=== PATIENT | female | born 1945 | race Caucasian/White ===

== ENCOUNTER → 2016-11-24 | Outpatient (CLI) | payer MEDICARE, BC ==
--- NOTE | 2016-11-24 14:48 | WWHP ---
[facility] - HISTORY AND PHYSICAL DATE OF SERVICE: 11/24/2016 CHIEF COMPLAINT: The patient is here for her routine gynecologic exam and mammogram. HPI: This is a 70-year-old, G1, P1 with an LMP of 2001. The patient had a negative Pap smear on 10/23/2015. She is without gynecologic complaints and denies any postmenopausal bleeding. PAST MEDICAL HISTORY: Chronic hypertension. MEDICATIONS: 1. Potassium 30 mEq daily. 2. Atenolol with chlorthalidone 100/25 mg 1 daily. 3. Xanax 0.25 mg p.r.n. 4. Naproxen 250 mg b.i.d. 5. Vitamin D3 four thousand units daily. 6. Calcium 1200 mg daily. 7. Fish oil supplement daily. 8. Turmeric 500 mg daily. 9. Z BEC 1 daily. ALLERGIES: SULFA and PENICILLIN and she is uncertain of the reactions that she had with these. PAST SURGICAL HISTORY: Colonoscopy 2013 and this was her third one. She has had multiple breast biopsies which were benign. Cholecystectomy in the past and left knee replacement surgery in the past. Also salivary gland was removed which was benign. PAST OB HISTORY: One vaginal delivery. 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 SOCIAL HISTORY: She denies tobacco and drug use and has 1 to 2 alcoholic drinks per week. She is . She does have a partner that she has been with since about 2009 and does not live with him. She is infrequently sexually active. 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 FAMILY HISTORY: Mother had ovarian cancer. Grandfather had prostate cancer. Grandparents had heart disease. REVIEW OF SYSTEMS: Weight has been stable. She denies respiratory, cardiac or GI problems. She denies maltreatment or falling. : She has occasional slight urinary leakage with coughing. PHYSICAL EXAM: Blood pressure 118/88, height 5 feet 3-1/2 inches, weight 215 pounds. Temperature 97.9, pulse 67. This is a well-developed, heavyset white female, who is alert and oriented x3, in no acute distress. HEENT is within normal limits. NECK: Supple without mass or thyromegaly. CHEST AND LUNGS: Clear to auscultation. HEART: Regular rate and rhythm. Breasts are without mass or discharge. Axillary exam is negative for adenopathy. Back negative for CVA tenderness. ABDOMEN: Soft, nontender, without palpable masses. PELVIC EXAM: external genitalia reveals mild atrophy without lesions. Cervix and vagina reveal mild atrophy without lesions. There is no evidence of prolapse with Valsalva. There is no significant cystocele and no urinary leakage was demonstrated. There is a small amount of urethral mobility with Valsalva. The uterus is mid position, nongravid size and nontender. There are no palpable adnexal masses or tenderness. Rectovaginal exam is negative for mass or tenderness and is negative for occult blood. EXTREMITIES: Nontender. IMPRESSION: 1. A 70-year-old menopausal female with normal gynecologic exam. 2. Family history of ovarian cancer in her mother. PLAN: 1. Pap smear was deferred since she had a normal one on 10/23/2015. 2. Self breast examination was discussed. 3. Mammogram will be done today. 4. Bone density screening will be done today. 5. She does get flu shots in the fall and will be getting this soon. 6. I have offered a pelvic ultrasound because of her family history of ovarian cancer. She is declining this year. She states she had 1 done last year and will probably want to do this again next year. 7. She will return in 1 year. MMODL / IJN: [id number] /
--- NOTE | 2016-11-25 11:05 | MM ---
Reason for exam: screening (asymptomatic). History: Patient is postmenopausal. Benign excisional biopsy of the left breast, 1968. Benign excisional biopsy of the right breast, 1968. Physical Findings: A clinical breast exam by your physician is recommended on an annual basis and results should be correlated with mammographic findings. MG 3D Screening Mammo W/Cad Bilateral CC and MLO view(s) were taken. There are scattered fibroglandular densities. Stable benign calcifications. Stable nodularity in the left breast No significant changes when compared with prior studies. ASSESSMENT: Benign, BI-RAD 2 RECOMMENDATION: Routine screening mammogram of both breasts in 1 year.
== END | disposition home or self-care (01) ==
LOC: WWCWWP 13:07
PROVIDERS: ATTEND Obstetrics & Gynecology
DX: Z12.31 Encounter for screening mammogram for malignant neoplasm of breast (principal)
CPT/HCPCS: 77063; G0202

== ENCOUNTER → 2016-12-14 | Outpatient (CLI) | payer MEDICARE, BC ==
--- NOTE | 2016-12-14 16:22 | BD ---
EXAMINATION TYPE: MG DEXA axial skeleton. DATE OF EXAM: 12/14/2016 COMPARISON: NONE CLINICAL HISTORY: 71-year-old female postmenopausal without HRT Height: 63 IN Weight: 213 LBS FRAX RISK QUESTIONS: Alcohol (3 or more units per day): NO Family History (Parent hip fracture): NO Glucocorticoids (More than 3mos): NO (Ex: prednisone, prednisolone, methylprednisolone, dexamethasone, and hydrocortisone). History of Fracture in Adulthood: NO Secondary Osteoporosis: 1. Type 1 Diabetes: NO 2. Hyperthyroidism: NO 3. Menopause before 45: NO 4. Malnutrition: NO 5. Chronic liver disease: NO Rheumatoid Arthritis: NO Current Tobacco Use: NO RISK FACTORS HISTORY OF: History of Wrist Fracture: YES RT When: BEFORE AGE 11 Active: YES Postmenopausal woman: AGE 51 MEDICATIONS: Additional Medications: CALCIUM 600 UNITS, VIT D 4000 UNITS,POTASSIUM, ATENOLOL, NAPROXEN , EXAM MEASUREMENTS: Bone mineral densitometry was performed using the Fundera System. Bone mineral density as measured about the Lumbar spine is: ----- L1-L4(G/cm2): 1.097 T Score Values are as follows: ----- L2: -1.2 ----- L3: -0.9 ----- L4: 0.2 ----- L1-L4: -0.7 Bone mineral density has: NO CHANGE 0.0% since study of: 04/05/2012 Bone mineral density about the R hip (g/cm2): 0.836 Bone mineral density about the L hip (g/cm2): 0.818 T Score values are as follows: -----R Neck: -1.5 -----L Neck: -1.6 -----R Total: -0.9 -----L Total: -0.3 Bone mineral density has: Decreased -4.0% since study of: 04/05/2012 IMPRESSION: Osteopenia (T Score between -2.5 and -1 as noted by T score values in the lumbar spine and both hips) . There is slightly increased risk of fracture and the patient may be considered for treatment. Re-Scre en 2-5 years. NOTE: T-SCORE=SD OF THE YOUNG ADULT MEAN.
== END | disposition home or self-care (01) ==
LOC: RADBDWWP 14:02
PROVIDERS: ATTEND Obstetrics & Gynecology
DX: M85.89 Other specified disorders of bone density and structure, multiple sites (principal); Z78.0 Asymptomatic menopausal state
CPT/HCPCS: 77080

== ENCOUNTER → 2018-01-25 | Outpatient (CLI) | payer MEDICARE, BC ==
[2018-01-25 14:53] LABS: Blood Urea Nitrogen 18 mg/dL (7-17)
--- NOTE | 2018-01-25 16:13 | CT ---
EXAMINATION TYPE: CT chest w con DATE OF EXAM: 01/25/2018 COMPARISON: None HISTORY: Abnormal outside MRI Automated exposure control for dose reduction was used. CONTRAST: 100 ml Iso 300. Contrast-enhanced CT of the chest was performed from the lung apices through the mid poles of the kidneys. Lung and mediastinal window settings are submitted. FINDINGS: LUNGS: The lungs are grossly clear, there is no concerning parenchymal mass or nodule identified. T here is no pleural effusion or pneumothorax seen. The tracheobronchial tree is patent. MEDIASTINUM: There are no greater than 1 cm hilar or mediastinal lymph nodes. No pericardial effusi on is seen. Thoracic aorta is of normal caliber. The heart is not enlarged. UPPER ABDOMEN: Small hiatal hernia. Multiple hepatic cysts noted the largest of which is identified w ithin the medial segment left hepatic lobe and measures 8 cm. An additional cyst is noted within the lateral segment left hepatic lobe adjacent to the diaphragm measuring 3.6 cm. OTHER: No additional significant abnormality is seen. IMPRESSION: 1. No abnormality of the chest. 2. Simple hepatic cysts noted.
== END | disposition home or self-care (01) ==
LOC: RADCTMAIN 14:13
PROVIDERS: ATTEND Family Medicine
DX: K76.89 Other specified diseases of liver (principal); E78.2 Mixed hyperlipidemia; E55.9 Vitamin D deficiency, unspecified; F41.9 Anxiety disorder, unspecified
CPT/HCPCS: 82565; 84520; 71260; 36415; Q9967

== ENCOUNTER → 2018-01-27 | Outpatient (CLI) | payer MEDICARE, BC ==
--- NOTE | 2018-01-27 14:12 | US ---
EXAMINATION TYPE: US pelvic complete DATE OF EXAM: 01/27/2018 COMPARISON: US 12/29/2010 CLINICAL HISTORY: Z80.41 Family History Ovarian CA. No problems. TECHNIQUE: . Transabdominal sonographic images of the pelvis were acquired. Date of LMP: Around 20 years ago EXAM MEASUREMENTS: Uterus: 5.7 x 2.1 x 3.0 cm Endometrial Stripe: 0.3 cm Right Ovary: 2.2 x 1.0 x 1.4 cm Left Ovary: 1.5 x 1.0 x 1.6 cm 1. Uterus: Anteverted wnl 2. Endometrium: wnl 3. Right Ovary: wnl 4. Left Ovary: wnl 5. Bilateral Adnexa: wnl 6. Posterior cul-de-sac: wnl IMPRESSION: No suspicious ovarian or adnexal masses identified.
--- NOTE | 2018-02-01 17:18 | P.PN ---
Progress Note - Text Progress Note Date: 02/01/18 OUTPATIENT FOLLOW-UP NOTE TEST(S)/RESULTS: pelvic ultrasound done on 01/27/2018 was normal. There were no suspicious ovarian or adnexal masses identified. METHOD OF NOTIFICATION: a message with this normal result was left on the patient's voicemail. PATIENT COMMENTS: DIAGNOSIS: normal pelvic ultrasound done for family history of ovarian cancer. DISCUSSION: PLAN: she is to return in one year for her annual well woman exam.
== END | disposition home or self-care (01) ==
LOC: RADUSWWP 10:04
PROVIDERS: ATTEND Obstetrics & Gynecology
DX: Z12.73 Encounter for screening for malignant neoplasm of ovary (principal); Z80.41 Family history of malignant neoplasm of ovary
CPT/HCPCS: 76856

== ENCOUNTER → 2018-03-21 | Outpatient (CLI) | payer MEDICARE, BC ==
[2018-03-21 13:10] LABS: HCT 42.9 % (34.0-46.0); HGB 14.5 gm/dL (11.4-16.0); MCH 29.9 pg (25.0-35.0); MCHC 33.8 g/dL (31.0-37.0); MCV 88.3 fL (80.0-100.0); Mean Platelet Volume 6.9; Platelet Count 229 k/uL (150-450); RBC 4.86 m/uL (3.80-5.40); WBC 6.7 k/uL (3.8-10.6)
[2018-03-21 13:20] LABS: Partial Thromboplastin Time 25.9 sec (22.0-30.0); Prothrombin Time 10.3 sec (9.0-12.0)
[2018-03-21 13:21] LABS: Appearance,Urine Clear (Clear); Bilirubin,Urine Negative (Negative); Blood,Urine Negative (Negative); Color,Urine Yellow; Glucose,Urine (UA) Negative (Negative); Ketones,Urine Negative (Negative); Leukocyte Esterase,Urine Small (Negative); Nitrite,Urine Negative (Negative); Protein,Urine Negative (Negative); RBC,Urine <1 /hpf (0-5); Specific Gravity,Urine 1.005 (1.001-1.035); Urobilinogen,Urine <2.0 mg/dL (<2.0); WBC,Urine 1 /hpf (0-5)
[2018-03-21 13:25] LABS: ALT 21 U/L (9-52); AST 21 U/L (14-36); Alkaline Phosphatase 39 U/L (38-126); Anion Gap 5 mmol/L; Blood Urea Nitrogen 20 mg/dL (7-17); Calcium 9.9 mg/dL (8.4-10.2); Carbon Dioxide 32 mmol/L (22-30); Chloride 103 mmol/L (98-107); Glucose 89 mg/dL (74-99); Potassium 4.2 mmol/L (3.5-5.1); Sodium 140 mmol/L (137-145); Total Protein 6.6 g/dL (6.3-8.2)
== END | disposition home or self-care (01) ==
LOC: LABPAT 11:45
PROVIDERS: ATTEND Orthopaedic Surgery
DX: Z01.818 Encounter for other preprocedural examination (principal); Z01.812 Encounter for preprocedural laboratory examination
CPT/HCPCS: 80053; 81001; 85027; 85610; 85730; 87070; 93005

== ENCOUNTER 2018-04-11 05:51 | Inpatient (IN) | payer MEDICARE, BC ==
[~2018-04-11 05:51] MED LIST: ACETAMINOPHEN TAB 500 MG TAB PO ONE; HYDROmorphone 0.5 MG/0.5 ML SYRINGE IVP PRN; LIDOCAINE 1% 20 ML VIAL (10MG/ML) FOR IV START INTRADERMA PRN; ONDANSETRON 4 MG/2 ML VIAL IVP ONE; TRANEXAMIC ACID 1,000 MG in SODIUM CHLORIDE 0.9% 100 ML IVPB ONE; ceFAZolin IN SWFI 2 GM/20 ML SYRINGE IVP ONE
[2018-04-11] MEDS: LACTATED RINGERS 1,000 ML IV SCH ×3 (06:21→22:44)
[2018-04-11] MEDS ORDERED: MIDAZOLAM 2 MG/2 ML VIAL IVP ONE (06:51)
[2018-04-11] MEDS ORDERED: fentaNYL (PF) 50 MCG/ML 2 ML AMP IVP ONE (06:52)
[2018-04-11] MEDS ORDERED: TRANEXAMIC ACID 1,000 MG/10 ML VIAL ONE (07:37)
[2018-04-11] MEDS ORDERED: SODIUM CHLORIDE 0.9% 100 ML BAG ONE (07:37)
[2018-04-11] MEDS ORDERED: PROPOFOL 10 MG/ML 20 ML VIAL IV ONE (07:37)
[2018-04-11] MEDS ORDERED: GLYCOPYRROLATE 0.2 MG/ML 2 ML VIAL ONE (07:37)
[2018-04-11] MEDS ORDERED: NEOSTIGMINE 1 MG/ML 10 ML VIAL ONE (07:37)
[2018-04-11] MEDS ORDERED: MIDAZOLAM 2 MG/2 ML VIAL ONE (07:37)
[2018-04-11] MEDS ORDERED: ePHEDrine SULFATE/0.9% NACL/PF 50 MG/5 ML SYRINGE IV ONE (07:37)
[2018-04-11] MEDS ORDERED: ROCURONIUM BROMIDE 10 MG/ML 10 ML VIAL IV ONE (07:37)
[2018-04-11] MEDS ORDERED: LIDOCAINE 1% INJ 10MG/ML (20 ML MDV) ONE (07:37)
[2018-04-11] MEDS ORDERED: SUCCINYLCHOLINE CHLORIDE 100 MG/5 ML SYR IV ONE (07:37)
[2018-04-11] MEDS ORDERED: ROPIVACAINE 246.25 MG, EPINEPHrine 0.5 MG, KETOROLAC 30 MG, cloNIDine HCL/PF 80 MCG, WA... MISCELLANE ONE ×5 (07:42)
[2018-04-11] MEDS ORDERED: ceFAZolin 3,000 MG in SODIUM CHLORIDE 0.9% IRRIGATIO 3,000 ML IRRIGATION ONE (08:08)
[2018-04-11] MEDS ORDERED: ROPIVACAINE 1,100 MG, SODIUM CHLORIDE 0.9% 500 ML 330 ML MISCELLANE PRN ×2 (08:21)
--- NOTE | 2018-04-11 08:21 | P.ONQ ---
Anesthesiology Proc Note - PNB - Peripheral Nerve Block Performed Right Adductor Canal Infusion Time Out Performed: Yes Procedure Start Time: 06:50 Procedure Stop Time: 07:03 Indication: Requested by physician Specifically requested for management of pain by DrDu: Isaias Goodman Sedation Type: Sedate with meaningful contact maintained Preparation: Sterile Dressing Position: Supine Catheter: Indwelling Needle Types: Other (see comment) Needle Size: 100mm (4") (pujunk) Needle Gauge: 20 Technique: Ultrasound Injectate: 0.5% Ropivacaine (see comment for volume) (25 ml) Blood Aspirated: No Pain Paresthesia on Injection Noted: No Resistance on Injection: Normal Events: Uneventful and Well Tolerated
[2018-04-11] MEDS ORDERED: LACTATED RINGERS 1,000 ML IV ONE (08:30)
--- NOTE | 2018-04-11 09:55 | P.OP ---
Date of Procedure: 04/11/18 Procedure(s) Performed: right tka flower PREOPERATIVE DIAGNOSIS: Right knee severe osteoarthritis with genu varum POSTOPERATIVE DIAGNOSIS: Right knee severe osteoarthritis with genu varum; 2. Diminished bone quality/osteopenia/osteoporosis OPERATION: Right knee cemented total replacement arthroplasty (metal on poly ANESTHESIA: Spinal ESTIMATED BLOOD LOSS: 100 ml. CARTON LINER: Anahi Pacheco PA-C (assistance with: patient positioning, retraction, exposure, hemostasis, leg positioning, implantation, irrigation, closure, dressing) COMPLICATIONS: None apparent. COMPONENTS IMPLANTED: Persona system from [employer] with tibial stem extension INDICATIONS: Mrs. Jackson is a 72-year-old female with a history of knee osteoarthritis. The patient's right knee is end-stage, and conservative management has failed. The operation of knee replacement has been discussed at length in the office, as well as potential risks and complications. These are inclusive of, but not limited to: bleeding, infection, scarring, discomfort, blood vessel and nerve damage, need for further surgery, failure to relieve symptoms, persistence, recurrence, or worsening of problems, loosening, dislocation, wear, blood clot, pulmonary embolism, , gait dysfunction, stiffness, and other risks as discussed in the office. The patient elects to proceed and the consent form has been signed. PROCEDURE: The patient was taken to the operating room and positioned on the operating room table in the supine position. Anesthesia was initiated. Care was taken to make sure that all pressure points were adequately padded. The operative lower extremity was prepped and draped in the usual aseptic fashion using ChloraPrep. Ioban drape was used for the case and the patient received intravenous antibiotics within one hour of the incision. A pneumotourniquet and leg wolfe were used for the case. The limb was exsanguinated with an Esmarch bandage and the tourniquet was inflated to 350 mmHg. Time-out was called confirming the patient's identity, side, procedure and administration of antibiotics and tranexamic acid. The incision was then created midline directly over the knee, carried down through skin and into the subcutaneous tissues and down to fascia. Full thickness subcutaneous medial flap was developed. Medial parapatellar arthrotomy was performed and the interior of the knee was inspected. There was end-stage osteoarthritis of the knee with a mild to moderate genu varum type deformity. The fat pad was excised and proximal medial release on the tibia was completed using meticulous dissection and a curved osteotome. The anterior cruciate ligament was taken down. Note was made of significant attrition of the anterior and significant degenerative appearance of the posterior cruciate ligaments. The exposure was excellent. The knee was flexed 90 degrees and the patella was everted. A spot was chosen on the femur approximately 1 cm anterior to the posterior cruciate ligament insertion and an intramedullary hole was created within the femur. The intramedullary guide was then set to 5 degrees of valgus. The distal cutting block was attached and pinned into position. An appropriate amount of distal femoral resection was set. The oscillating saw was then used to make the distal femoral cut. This cut was confirmed to be flat with the flat end of an osteotome. The retractors were placed around the tibia and the tibial surface was addressed. The angle and depth of resection was adjusted using an extramedullary cutting guide. The guide had a built-in 3 degree posterior slope cut. Once the cutting guide was adjusted appropriately and in line with the axis of the tibia and confirmed to be in good position in relation to the second metatarsal and transmalleolar axis, the tibial cut was then created with protection of the posterior neurovascular structures and the collateral ligaments. Note was made of diminished bone quality and therefore a short tibial stem extension was planned. The tibial cut surface was removed and sized. Femoral sizing was then accomplished using anterior referencing. Care was taken to analyze the posterior condyles for signs of deficiency or severe wear, and adjustments to the guide were made, as appropriate. 3 degree external rotation pins were placed. The cutting jig for the femur was applied to these pins. The planned cuts were further analyzed prior to performing them with the oscillating saw. No femoral notching was produced. Bone fragments were removed and the cut surfaces were finished, as necessary, with a reciprocating saw. Spacer block technique was then used to confirm that the flexion and extension gaps were equal. Soft tissue releases and adjustment of the tibial and/or femoral cuts were made, as necessary, until the gaps were equal. This included release of the posterior cruciate ligament, which was tight in this patient and , if left unreleased, would have resulted in poor kinematics and possibly early loosening. The femur was then further finished for a posterior cruciate ligament substituting component. Patellar resurfacing was performed using a reamer. The size of the required patellar component was estimated and the patellar surface was then reamed down to a residual thickness which would recreate the [place] thickness with the component. The exact placement of the patellar component was adjusted for position based on preoperative x-rays and intraoperative findings. Prior to placing trial components, anesthetic solution consisting of ropivicaine with epinephrine, ketorolac, and clonidine was injected carefully and methodically in a grid pattern using aspiration technique into the soft tissue around the knee circumferentially, starting with the deeper tissues first and progressing to fascia, and then finally the skin/subcutaneous tissue. Particular care was taken when injecting the posterior capsule. The trial components were inserted. The tibial tray was allowed to self center and the patella was noted to track very well. The position of the tibial component was marked and the tibia was then finished for a stemmed tibial component. Cement was mixed on the back table and applied to the final components. Trial components were removed and the cut surfaces of the bone were pulse lavaged thoroughly and dried. Cement was then applied to the tibial surface and pressurized into the surface using finger pressurization technique. The tibial component with stem extension was then applied and excess cement was removed after it was impacted securely and noted to be flush with the cut surface. In similar fashion, the cement was applied to the cut femoral surface, pressurized in using finger pressurization and the component was impacted into place. Excess cement was removed. The polyethylene spacer was then implanted and locked into position. The patellar component was then applied in similar technique and a patellar clamp was used to hold the patella in place as the cement hardened. Once the cement had fully hardened, the knee was reinspected. Any other cement extrusion was removed and final kinematic testing showed range of motion from 0 to 130 degrees with excellent stability, both medially and laterally and appropriate alignment of the leg. Patellar tracking was excellent. The knee was then rinsed and wound soaked with dilute chlorhexidine solution, then thoroughly pulse lavaged with normal saline. The tourniquet was deflated and hemostasis was obtained with electrocautery and IV tranexamic acid, 1 g given at the start of the operation and 1 g at the start of closure. Closure was with #2 Ethibond in the fascia/capsule and supplemented with #2 Quill, 2-0 Vicryl suture was used for the subcutaneous tissues and 3-0 Quill for the skin. Dermabond/Steri-Strips were then applied. A lightly compressive dressing was applied using Webril and an Michael wrap. The patient was then transferred to [facility] and taken to the recovery room in stable condition. Sponge and needle counts were correct.
[2018-04-11] MEDS ORDERED: BISACODYL 10 MG SUPP RECTAL PRN (10:03)
[2018-04-11] MEDS ORDERED: NA PHOS,M-B/NA PHOS,DI-BA 133 ML ENEMA RECTAL PRN (10:03)
[2018-04-11] MEDS ORDERED: ONDANSETRON 4 MG/2 ML VIAL IVP PRN (10:03)
[2018-04-11] MEDS ORDERED: NALOXONE 0.4 MG/ML 1 ML VIAL IV PRN (10:03)
[2018-04-11] MEDS ORDERED: MAGNESIUM HYDROXIDE 2,400 MG/10 ML CUP PO PRN (10:03)
[2018-04-11] MEDS ORDERED: HYDROmorphone 0.5 MG/0.5 ML SYRINGE IVP PRN ×3 (10:03)
[2018-04-11] MEDS ORDERED: ONDANSETRON 4 MG/2 ML VIAL IVP ONE (10:45)
--- NOTE | 2018-04-11 11:17 | XR ---
EXAMINATION TYPE: XR knee limited RT DATE OF EXAM: 04/11/2018 CLINICAL HISTORY: Postoperative evaluation Two views of the right knee are submitted. Identified are changes of total knee arthroplasty with femoral and tibial components appearing well seated. Postsurgical soft tissue changes are noted. Alignment is anatomic.
[2018-04-11 12:10] VITALS: BMI 35.0
--- NOTE | 2018-04-11 15:22 | P.CONS ---
History of Present Illness - Reason for Consult Recommendations regarding anti-hypertensive medications - History of Present Illness 71-year-old pleasant female admitted for right anaplastic sepsis and underwent surgery patient doesn't have any drainage placed patient denied any significant pain did not move her bowel pattern did not pass gas yet. Patient does have history of hypertension patient blood pressures is low normal at this time hold off on diuretic therapy patient is also on beta warner but he'll her heart rate is on the lower side because of which I'll continue to hold beta warner as well. Although beta blockers have shown to decrease perioperative acute coronary events but the patient is mild ascites sinus bradycardic because of which I believe this can be held at this time. Review of Systems REVIEW OF SYSTEMS: CONSTITUTIONAL: No fever, no malaise, no fatigue. HEENT: No recent visual problems or hearing problems. Denied any sore throat. CARDIOVASCULAR: No chest pain, orthopnea, PND, no palpitations, no syncope. PULMONARY: No shortness of breath, no cough, no hemoptysis. GASTROINTESTINAL: No diarrhea, no nausea, no vomiting, no abdominal pain. NEUROLOGICAL: No headaches, no weakness, no numbness. HEMATOLOGICAL: Denies any bleeding or petechiae. GENITOURINARY: Denies any burning micturition, frequency, or urgency. MUSCULOSKELETAL/RHEUMATOLOGICAL: Denies any joint pain, swelling, or any muscle pain. ENDOCRINE: Denies any polyuria or polydipsia. The rest of the 14-point review of systems is negative. 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 History of Any Multi-Drug Resistant Organisms: None Reported Past Surgical History: Breast Surgery, Cholecystectomy, Joint Replacement, Tonsillectomy Additional Past Surgical History / Comment(s): left knee replacement, breast biopsies- minesh lumpectomy, salivary gland removed Past Anesthesia/Blood Transfusion Reactions: Motion Sickness, Postoperative Nausea & Vomiting (PONV) Past Psychological History: Anxiety Smoking Status: Never smoker Past Alcohol Use History: Rare Past Drug Use History: None Reported - Past Family History Mother Family Medical History: Cancer Additional Family Medical History / Comment(s): ovarian Medications and Allergies Home Medications Medication Instructions Recorded Confirmed Type Atenolol/Chlorthalidone 1 each PO DAILY 01/31/14 04/11/18 History [Atenolol-Chlorthalidone 100-25] Potassium Chloride 30 meq PO DAILY 01/31/14 04/04/18 History ALPRAZolam [Xanax] 0.25 mg PO TID PRN 01/11/18 04/11/18 History Calcium Carbonate [Calcium] 1,200 mg PO DAILY 01/11/18 04/04/18 History Cholecalciferol (Vitamin D3) 4,000 unit PO DAILY 01/11/18 04/04/18 History [Vitamin D3] Naproxen 500 mg PO BID 01/11/18 04/04/18 History B Complex-Vit C-Vit E-Zinc [Z-Bec] 1 tab PO DAILY 04/04/18 04/04/18 History Fish Oil(Dose Unknown) 1 tab PO DAILY 04/04/18 04/04/18 History Aspirin [Adult Low Dose Aspirin EC] 81 mg PO DAILY #1 tablet. 04/11/18 Rx HYDROcodone/APAP 5-325MG [[place] 1 - 2 each PO Q4-6H PRN #50 tab 04/11/18 Rx 5-325] Rivaroxaban [Xarelto] 10 mg PO DAILY #5 tab 04/11/18 Rx Sennosides-Docusate Sodium 1 tab PO BID #60 tablet 04/11/18 Rx [Senokot-S] Allergies Allergy/AdvReac Type Severity Reaction Status Date / Time escitalopram oxalate Allergy Hallucinati Verified 04/11/18 11:31 [From Lexapro] ons Penicillins Allergy Rash/Hives Verified 04/11/18 11:31 Sulfa (Sulfonamide Allergy Unknown Verified 04/11/18 11:31 Antibiotics) Childhood Physical Exam Vitals: Vital Signs Temp Pulse Pulse Resp BP Pulse Ox 04/11/18 10:30 70 16 132/57 69 L 04/11/18 10:15 70 16 132/57 100 04/11/18 10:00 98.0 F 80 16 127/60 96 04/11/18 07:11 55 L 17 137/63 98 04/11/18 06:14 97 F L 69 17 155/69 96 Intake and Output 04/11/18 04/11/18 04/11/18 06:59 14:59 22:59 Intake Total 500 1201 Output Total 100 Balance 500 1101 Intake: IV 500 1201 Output: Estimated Blood Loss 100 PHYSICAL EXAMINATION: GENERAL: The patient is alert and oriented x3, not in any acute distress. Well developed, well nourished. HEENT: Pupils are round and equally reacting to light. EOMI. No scleral icterus. No conjunctival pallor. Normocephalic, atraumatic. No pharyngeal erythema. No thyromegaly. CARDIOVASCULAR: S1 and S2 present. No murmurs, rubs, or gallops. PULMONARY: Chest is clear to auscultation, no wheezing or crackles. ABDOMEN: Soft, nontender, nondistended, sluggish bowel sounds MUSCULOSKELETAL: Deferred to orthopedic surgery EXTREMITIES: No cyanosis, clubbing, or pedal edema. NEUROLOGICAL: Gross neurological examination did not reveal any focal deficits. SKIN: No rashes. Assessment and Plan Plan: Hypertension: Management as mentioned above hold off antihypertensive medication and monitor blood pressure restart depending on the blood pressures here -Right knee arthroplasty: Pain management and due to prophylaxis as per primary service -Gases visual reflux disease -Anxiety disorder
[2018-04-11] MEDS: ceFAZolin IN SWFI 2 GM/20 ML SYRINGE IVP SCH (17:25)
[2018-04-11] MEDS: HYDROcodone/APAP 5-325MG 1 EACH TAB PO PRN ×2 (17:27→22:34)
[2018-04-11] MEDS ORDERED: TEMAZEPAM 15 MG CAP PO PRN (22:00)
[2018-04-11] MEDS: SENNOSIDES-DOCUSATE SODIUM 1 EACH TAB PO SCH (22:36)
[2018-04-11] MEDS: ALPRAZolam 0.25 MG TAB PO PRN (22:37)
[2018-04-12] MEDS: ceFAZolin IN SWFI 2 GM/20 ML SYRINGE IVP SCH (00:11)
[2018-04-12] MEDS: LACTATED RINGERS 1,000 ML IV SCH ×2 (05:33)
[2018-04-12] MEDS: HYDROcodone/APAP 5-325MG 1 EACH TAB PO PRN ×2 (06:43→12:09)
[2018-04-12 08:11] LABS: Basophils % (A) 0 %; Eosinophils # (A) 0.1 k/uL (0-0.7); Eosinophils % (A) 1 %; HCT 34.8 % (34.0-46.0); HGB 11.8 gm/dL (11.4-16.0); Lymphocytes # (A) 1.1 k/uL (1.0-4.8); Lymphocytes % (A) 18 %; MCHC 33.7 g/dL (31.0-37.0); Mean Platelet Volume 6.8; Monocytes # (A) 0.3 k/uL (0-1.0); Monocytes % (A) 5 %; Neutrophils # (A) 4.4 k/uL (1.3-7.7); Neutrophils % (A) 73 %; Platelet Count 180 k/uL (150-450); RBC 3.91 m/uL (3.80-5.40); RDW 13.3 % (11.5-15.5)
[2018-04-12] MEDS: MELOXICAM 7.5 MG TAB PO SCH (09:17)
[2018-04-12] MEDS: RIVAROXABAN 10 MG TAB PO SCH (09:18)
--- NOTE | 2018-04-12 09:48 | P.PN ---
Progress Note - Text Progress Note Date: 04/12/18 72-year-old female status post a right total knee arthroplasty postop day #1 with a abductor canal catheter. Patient complaining of pain 5 out of 10 in severity. She has a history of low back pain with radicular pain in her right leg along the posterior aspect of her entire leg. That is currently the most intense pain at the moment. She was up ambulating early today to the bathroom with no difficulty with slight increase in pain in her knee. Overall doing well.
--- NOTE | 2018-04-12 11:00 | P.PN ---
Subjective Progress Note Date: 04/12/18 Principal diagnosis: Primary osteoarthritis right knee. Status post total right knee arthroplasty. This is a 72-year-old female who is status post total right knee arthroplasty. She is doing well from orthopedic standpoint. She does have increased pain this morning. She does not wish to be discharged today. She does not feel steady and is having issues with pain management. Objective - Vital Signs Vital signs: Vital Signs Temp 98.8 F 04/12/18 07:12 Pulse 80 04/12/18 07:12 Resp 16 04/12/18 07:12 BP 99/63 04/12/18 07:12 Pulse Ox 93 L 04/12/18 07:12 Intake & Output 04/11/18 04/12/18 04/12/18 18:59 06:59 18:59 Intake Total 1201 1730 296 Output Total 300 900 Balance 901 830 296 Intake: IV 1201 Intake, IV Titration 650 Amount Lactated Ringers 1,000 ml 650 @ 100 mls/hr IV .Q10H COURTNEY Rx#:[id number] Oral 1080 296 Output: Urine 200 900 Estimated Blood Loss 100 Other: Voiding Method Toilet # Voids 1 - Exam This is a pleasant 72-year-old female in no acute distress. She is alert and oriented 3. Exam of the right knee reveals mild ecchymosis. There is no erythema. There is no active drainage from the incision. She has full foot and ankle motion without difficulty or pain. Neurovascular status to the lower extremity is intact. - Labs CBC & Chem 7: 04/12/18 07:23 Assessment and Plan (1) Osteoarthritis of right knee Current Visit: Yes Status: Acute Code(s): M17.11 - UNILATERAL PRIMARY OSTEOARTHRITIS, RIGHT KNEE SNOMED Code(s): 396650872273903 (2) Status post total right knee replacement using cement Current Visit: Yes Status: Acute Code(s): Z96.651 - PRESENCE OF RIGHT ARTIFICIAL KNEE JOINT SNOMED Code(s): 0873170102348 Plan: The clinical findings are discussed the patient. I have written a prescription for a wheel kit for her walker to make it easier to ambulate. We will plan discharged to home tomorrow.
--- NOTE | 2018-04-12 13:56 | P.PN ---
Subjective patient is still complaining of pain in the surgical site area patient blood pressure remains on the low normal side because of which asked her to hold of her antidepressant medication until she is seen by the primary care doctor.patient did pass gas did not move her bowel yet. Constitutional: Denied any fatigue denied any fever. Cardio vascular: denied any chest pain, palpitations Gastrointestinal denied any nausea vomiting Pulmonary: Denied any shortness of breath cough Neurologic denied any new focal deficits All inpatient medications were reviewed and appropriate changes in these medications as dictated in the interval history and assessment and plan. Objective - Vital Signs Vital signs: Vital Signs Temp 98.8 F 04/12/18 07:12 Pulse 80 04/12/18 07:12 Resp 16 04/12/18 07:12 BP 99/63 04/12/18 07:12 Pulse Ox 93 L 04/12/18 07:12 Intake & Output 04/11/18 04/12/18 04/12/18 18:59 06:59 18:59 Intake Total 1201 1730 296 Output Total 300 900 Balance 901 830 296 Intake: IV 1201 Intake, IV Titration 650 Amount Lactated Ringers 1,000 ml 650 @ 100 mls/hr IV .Q10H COURTNEY Rx#:[id number] Oral 1080 296 Output: Urine 200 900 Estimated Blood Loss 100 Other: Voiding Method Toilet # Voids 1 - Exam PHYSICAL EXAMINATION: GENERAL: The patient is alert and oriented x3, not in any acute distress. Well developed, well nourished. HEENT: Pupils are round and equally reacting to light. EOMI. No scleral icterus. No conjunctival pallor. Normocephalic, atraumatic. No pharyngeal erythema. No thyromegaly. CARDIOVASCULAR: S1 and S2 present. No murmurs, rubs, or gallops. PULMONARY: Chest is clear to auscultation, no wheezing or crackles. ABDOMEN: Soft, nontender, nondistended, normoactive bowel sounds. No palpable organomegaly. MUSCULOSKELETAL: No joint swelling or deformity. EXTREMITIES: No cyanosis, clubbing, or pedal edema. NEUROLOGICAL: Gross neurological examination did not reveal any focal deficits. SKIN: No rashes. - Labs CBC & Chem 7: 04/12/18 07:23 Assessment and Plan Plan: Hypertension: Management as mentioned above hold off antihypertensive medication and monitor blood pressure restart depending on the blood pressures here -Right knee arthroplasty: Pain management and DVT prophylaxis as per primary service -gastroesophageall reflux disease -Anxiety disorder
[2018-04-12] MEDS ORDERED: traMADol 50 MG TAB PO PRN (18:32)
[2018-04-12] MEDS: SENNOSIDES-DOCUSATE SODIUM 1 EACH TAB PO SCH (20:32)
[2018-04-12] MEDS: ALPRAZolam 0.25 MG TAB PO PRN (22:42)
[2018-04-13] MEDS: HYDROcodone/APAP 5-325MG 1 EACH TAB PO PRN ×3 (00:09→12:02)
[2018-04-13 01:07] VITALS: RESP 16
[2018-04-13 09:38] VITALS: BP 125/74; PULSE 80; TEMP 98.9
[2018-04-13] MEDS: RIVAROXABAN 10 MG TAB PO SCH (09:42)
[2018-04-13] MEDS: MELOXICAM 7.5 MG TAB PO SCH (09:42)
--- NOTE | 2018-04-13 11:08 | P.DS ---
Providers Date of admission: 04/11/18 05:51 Expected date of discharge: 04/13/18 Attending physician: Isaias Goodman Consults: 04/11/18 10:03 Consult Physician Routine Consulting Provider: Kimberly Barr Consult Reason/Comments: medical management Do you want consulting provider notified?: Yes Primary care physician: Jose Luis Hdez - Discharge Diagnosis(es) (1) Osteoarthritis of right knee Current Visit: Yes Status: Acute (2) Status post total right knee replacement using cement Current Visit: Yes Status: Acute Hospital Course: This is a 72-year-old female who was last seen with complaint of continued right knee pain. The patient has a known history of degenerative arthritis of the right knee and presents to discuss surgical options. After discussion and consideration the patient elects to proceed with total right knee arthroplasty. The patient is seen preoperatively by Dr. Welsh and cleared for surgery. The patient is admitted to [facility] for total right knee arthroplasty. The procedures performed without complication or sequelae. Patient is doing well postoperatively. Vital signs are stable at discharge. Labs are stable at discharge. the patient is ambulating well with walker with minimal assistance. The patient is discharged to home on postop day #2 pending medical clearance. Please see orders and refer to the med rec for accurate list of medications. Plan - Discharge Summary Discharge Rx Participant: Yes New Discharge Prescriptions: New Aspirin [Adult Low Dose Aspirin EC] 81 mg PO DAILY #1 tablet. HYDROcodone/APAP 5-325MG [Bartlett 5-325] 1 - 2 each PO Q4-6H PRN #50 tab PRN Reason: Pain Rivaroxaban [Xarelto] 10 mg PO DAILY #5 tab Sennosides-Docusate Sodium [Senokot-S] 1 tab PO BID #60 tablet Discontinued Atenolol/Chlorthalidone [Atenolol-Chlorthalidone 100-25] 1 each PO DAILY No Action Potassium Chloride 30 meq PO DAILY Calcium Carbonate [Calcium] 1,200 mg PO DAILY ALPRAZolam [Xanax] 0.25 mg PO TID PRN PRN Reason: Anxiety Naproxen 500 mg PO BID Cholecalciferol (Vitamin D3) [Vitamin D3] 4,000 unit PO DAILY Fish Oil(Dose Unknown) 1 tab PO DAILY B Complex-Vit C-Vit E-Zinc [Z-Bec] 1 tab PO DAILY Discharge Medication List Potassium Chloride 30 meq PO DAILY 01/31/14 [History] ALPRAZolam [Xanax] 0.25 mg PO TID PRN 01/11/18 [History] Calcium Carbonate [Calcium] 1,200 mg PO DAILY 01/11/18 [History] Cholecalciferol (Vitamin D3) [Vitamin D3] 4,000 unit PO DAILY 01/11/18 [History] Naproxen 500 mg PO BID 01/11/18 [History] B Complex-Vit C-Vit E-Zinc [Z-Bec] 1 tab PO DAILY 04/04/18 [History] Fish Oil(Dose Unknown) 1 tab PO DAILY 04/04/18 [History] Aspirin [Adult Low Dose Aspirin EC] 81 mg PO DAILY #1 tablet. 04/11/18 [Rx] HYDROcodone/APAP 5-325MG [Bartlett 5-325] 1 - 2 each PO Q4-6H PRN #50 tab 04/11/18 [Rx] Rivaroxaban [Xarelto] 10 mg PO DAILY #5 tab 04/11/18 [Rx] Sennosides-Docusate Sodium [Senokot-S] 1 tab PO BID #60 tablet 04/11/18 [Rx] Follow up Appointment(s)/Referral(s): Anahi Pacheco PAC [PHYSICIAN COMPUTER OPERATIONS SUPERVISOR] - 04/21/18 2:00 pm [facility], [NON-STAFF] - 1 Week Jose Luis Hdez DO [Primary Care Provider] - 04/18/18 1:20 pm (With Anjali BUSH) Activity/Diet/Wound Care/Special Instructions: May shower if no drainage from incision. May bear wt as tolerated w walker. Discharge Disposition: HOME WITH HOME HEALTH SERVICES
--- NOTE | 2018-04-13 18:28 | PN ---
PROGRESS NOTE DATE OF SERVICE: 04/12/2018 This 72-year-old woman was admitted after right knee arthroplasty is improving significantly. No chest pain. No palpitations. No fever. The pain is improving at this time. EXAM: Alert and oriented x2. Pulse is 80. Blood pressure 124/74, respirations 16, temperature 98.9, pulse ox 94% on room air. HEENT: Conjunctivae normal. NECK: No jugular venous distention. Cardiovascular: S1, S2 muffled. Respirations: Breath sounds diminished in the bases. No rhonchi. No crackles. Abdomen is soft, nontender. Legs status post knee arthroplasty. Central nervous system: No focal deficits. LABS: CBC within normal limites. ASSESSMENT: 1. Status post right knee arthroplasty. 2. Hypertension. 3. Gastroesophageal reflux disease. 4. History of anxiety. 5. Continued pain, improved. RECOMMENDATIONS AND DISCUSSION: Recommend to continue current medications, management and symptomatic treatment. Recommend to continue with the primary physician. Repeat labs and continue with home medications. Further recommendations to follow. MMODL / IJN: [id number] /
== END 2018-04-13 15:49 | disposition home health service (06) | DRG 470 ==
LOC: 2ORMAIN 05:51 → 4SSUR 10:05
PROVIDERS: ADMIT Orthopaedic Surgery; ATTEND Orthopaedic Surgery
PROC: 0SRC0J9 Replacement of Right Knee Joint with Synthetic Substitute, Cemented, Open Approach (ICD-10-PCS; principal; 2018-04-11 07:30)
DX: M17.11 Unilateral primary osteoarthritis, right knee (principal); R18.8 Other ascites; R00.1 Bradycardia, unspecified; I10 Essential (primary) hypertension; K21.9 Gastro-esophageal reflux disease without esophagitis; M21.169 Varus deformity, not elsewhere classified, unspecified knee; M81.0 Age-related osteoporosis without current pathological fracture; F41.9 Anxiety disorder, unspecified; E78.2 Mixed hyperlipidemia; E78.00 Pure hypercholesterolemia, unspecified; E55.9 Vitamin D deficiency, unspecified; M47.9 Spondylosis, unspecified; N39.3 Stress incontinence (female) (male); G89.29 Other chronic pain; M51.16 Intervertebral disc disorders with radiculopathy, lumbar region; M51.17 Intervertebral disc disorders with radiculopathy, lumbosacral region; E66.9 Obesity, unspecified; Z68.34 Body mass index [BMI] 34.0-34.9, adult; Z79.01 Long term (current) use of anticoagulants; Z79.82 Long term (current) use of aspirin; Z79.899 Other long term (current) drug therapy; Z88.0 Allergy status to penicillin; Z88.2 Allergy status to sulfonamides; Z88.8 Allergy status to other drugs, medicaments and biological substances; Z96.652 Presence of left artificial knee joint; Z85.828 Personal history of other malignant neoplasm of skin
CPT/HCPCS: 85025; 88300

== ENCOUNTER → 2018-08-08 | Outpatient (CLI) | payer MEDICARE, BC ==
--- NOTE | 2018-08-08 08:01 | US ---
EXAMINATION TYPE: US abdomen limited DATE OF EXAM: 08/08/2018 COMPARISON: NONE CLINICAL HISTORY: R93.2 Abnormal finding on previous exam. Patient states having an MRI for her back at an outside facility that showed liver lesions. GB removed in x 20 years ago EXAM MEASUREMENTS: Liver Length: 13.3 cm CBD: 0.8 cm CHD: 0.8 cm Right Kidney: 10.3 x 5.3 x 4.5 cm Pancreas: wnl, main pancreatic duct = 1.2 mm Liver: Multiple cystic appearing lesions seen. Largest on left = 7.0 x 7.8 x 5.3 cm. Largest on ri ght = 3.2 x 2.8 x 3.0 cm Gallbladder: Surgically absent Evidence for sonographic Millan's sign: neg CBD: wnl CHD: wnl Right Kidney: wnl IMPRESSION: Multiple hepatic cysts, all appearing simple in nature, the largest located on the left m easuring up to 7.8 cm.
== END | disposition home or self-care (01) ==
LOC: RADUSWWP 06:51
PROVIDERS: ATTEND Family Medicine
DX: K76.89 Other specified diseases of liver (principal)
CPT/HCPCS: 76705

== ENCOUNTER → 2019-02-07 | Outpatient (CLI) | payer MEDICARE, BC ==
[2019-02-07 13:54] VITALS: BP 124/78; PULSE 67; RESP 18; TEMP 97.7
--- NOTE | 2019-02-07 14:47 | P.HPOB ---
History of Present Illness H&P Date: 02/07/19 Chief Complaint: The patient is here for her routine gynecologic exam and ma mmogram. This is a 73-year-old with an LMP of 2001. The patient is without gynecologic complaints and denies any postmenopausal bleeding. Review of Systems She is gained 13 pounds over the last year. She denies respiratory, cardiac and G.I. problems. She denies maltreatment or problems with falling. : She has been experiencing urinary leakage with coughing and sneezing. Past Medical History Past Medical History: GERD/Reflux, Hypertension Additional Past Medical History / Comment(s): hx.tubular adenoma. Osteopenia. 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 History of Any Multi-Drug Resistant Organisms: None Reported Past Surgical History: Breast Surgery, Cholecystectomy, Joint Replacement Additional Past Surgical History / Comment(s): BL knee replaced, breast biopsies, salivary gland removed. Colonoscopy 2013. Past Anesthesia/Blood Transfusion Reactions: Postoperative Nausea & Vomiting (PONV) Past Psychological History: No Psychological Hx Reported Smoking Status: Never smoker Past Alcohol Use History: Occasional (2 per month) Past Drug Use History: None Reported Additional History: She is and has been with her partner since 2009. She is not sexually active. 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 - Past Family History Mother Family Medical History: Cancer Additional Family Medical History / Comment(s): ovarian. Grandfather had prostate cancer. Medications and Allergies Home Medications Medication Instructions Recorded Confirmed Type Potassium Chloride 30 meq PO DAILY 01/31/14 02/07/19 History ALPRAZolam [Xanax] 0.25 mg PO TID PRN 01/11/18 02/07/19 History Calcium Carbonate [Calcium] 1,200 mg PO DAILY 01/11/18 02/07/19 History Cholecalciferol (Vitamin D3) 4,000 unit PO DAILY 01/11/18 02/07/19 History [Vitamin D3] Naproxen 500 mg PO BID 01/11/18 02/07/19 History B Complex-Vit C-Vit E-Zinc [Z-Bec] 1 tab PO DAILY 04/04/18 02/07/19 History Fish Oil(Dose Unknown) 1 tab PO DAILY 04/04/18 02/07/19 History Atenolol/Chlorthalidone 1 each PO DAILY 02/07/19 02/07/19 History [Atenolol-Chlorthalidone 100-25] Allergies Allergy/AdvReac Type Severity Reaction Status Date / Time escitalopram oxalate Allergy Hallucinati Verified 02/07/19 13:54 [From Lexapro] ons Penicillins Allergy Rash/Hives Verified 02/07/19 13:54 Sulfa (Sulfonamide Allergy Unknown Verified 02/07/19 13:54 Antibiotics) Childhood Exam Vital Signs Temp Pulse Resp BP Pulse Ox 02/07/19 13:45 97.7 F 67 18 124/78 99 Intake and Output 02/06/19 02/07/19 02/07/19 22:59 06:59 14:59 Other: Weight 94.347 kg Height 5 feet 3 inches, weight 208 pounds, BMI 36.8. This is a well-developed well-nourished white female who is alert and oriented times 3 in no acute distress. HEENT: Within normal limits. NECK: Supple without mass or thyromegaly. CHEST AND LUNGS: Clear to auscultation. HEART: Regular rate and rhythm. BREASTS: Are without mass or discharge. AXILLARY EXAM: Negative for adenopathy. BACK: Negative for CVA tenderness. ABDOMEN: Soft, nontender, without palpable masses. PELVIC EXAM: Normal external genitalia with mild atrophy. Cervix and vagina appear normal mild atrophy. There is no unusual discharge. There is no evidence of prolapse. The uterus is midposition, nongravid size and nontender. There are no palpable adnexal masses or tenderness. RECTAL EXAM: Of vaginal exam is negative for mass or tenderness and is negative for occult blood. EXTREMITIES: Nontender. IMPRESSION: 1. 73-year-old menopausal female with normal gynecologic exam. 2. History of osteopenia. 3. Family history of ovarian cancer in her mother. 4. Stress urinary incontinence. PLAN: 1. Pap smear was deferred since she had a normal one on 01/11/2018. We will repeat this in 2-3 years. If that one is negative, we will consider discontinuing Pap smears. 2. Self breast awareness was discussed with the patient. 3. Screening mammogram will be done today. 4. Osteoporosis prevention was discussed. I have stressed the importance of adequate calcium, vitamin D and regular exercise. Recommended amounts of calcium and vitamin D were also discussed. Bone density testing will be done today. 5. She did receive a flu shot this fall. 6. We have discussed the option of a referral for her stress urinary incontinence. She will consider this. If she desires a referral she will be referred to a gynecologic urologist. 7. Pelvic ultrasound will be done yearly because of her family history of ovarian cancer. The order slip was given to the patient for this. 8. The patient was advised to return in 1-2 years for her well woman examination.
--- NOTE | 2019-02-07 16:05 | BD ---
EXAMINATION TYPE: Axial Bone Density DATE OF EXAM: 02/07/2019 COMPARISON: 12/14/2016 CLINICAL HISTORY: Postmenopausal female Height: 63 IN Weight: 205 LBS RISK FACTORS HISTORY OF: History of Wrist Fracture: YES When: APPROX AGE 11 Active: YES Postmenopausal woman: AGE 53 MEDICATIONS: Additional Medications: VIT D, CALCIUM, ATENOLOL, POTASSIUM, EXAM MEASUREMENTS: Bone mineral densitometry was performed using the [employer]. Bone mineral density as measured about the Lumbar spine is: ----- L1-L4(G/cm2): 1.106 T Score Values are as follows: ----- L2: -0.9 ----- L3: -1.2 ----- L4: 0.3 ----- L1-L4: -0.6 Bone mineral density has: Increased 0.2% since study of: 12/14/2016 Bone mineral density about the R hip (g/cm2): 0.790 Bone mineral density about the L hip (g/cm2): 0.841 T Score values are as follows: -----R Neck: -1.8 -----L Neck: -1.4 -----R Total: -1.2 -----L Total: -0.6 Bone mineral density has: Decreased -3.4% since study of: 12/14/2016 IMPRESSION: Osteopenia (T Score between -2.5 and -1). There is slightly increased risk of fracture and the patient may be considered for treatment. Re-Screen 2-5 years. NOTE: T-SCORE=SD OF THE YOUNG ADULT MEAN.
--- NOTE | 2019-02-09 13:53 | MM ---
Reason for exam: screening (asymptomatic). Last mammogram was performed 1 year and 1 month ago. History: Patient is postmenopausal. Benign excisional biopsy of the left breast, 1968. Benign excisional biopsy of the right breast, 1968. Took hormonal contraceptives for 23 years. Physical Findings: A clinical breast exam by your physician is recommended on an annual basis and results should be correlated with mammographic findings. MG 3D Screening Mammo W/Cad Bilateral CC and MLO view(s) were taken. Prior study comparison: January 11, 2018, bilateral MG 3d screening mammo w/cad. November 24, 2016, bilateral MG 3d screening mammo w/cad. There are scattered fibroglandular densities. Stable benign calcifications. There is no discrete abnormality. No significant changes when compared with prior studies. ASSESSMENT: Benign, BI-RAD 2 RECOMMENDATION: Routine screening mammogram of both breasts in 1 year.
== END | disposition home or self-care (01) ==
LOC: WWCWWP 13:35
PROVIDERS: ATTEND Obstetrics & Gynecology
DX: Z12.31 Encounter for screening mammogram for malignant neoplasm of breast (principal); M85.80 Other specified disorders of bone density and structure, unspecified site; Z78.0 Asymptomatic menopausal state
CPT/HCPCS: 77063; 77067; 77080

== ENCOUNTER → 2019-03-15 | Outpatient (CLI) | payer MEDICARE, BC ==
--- NOTE | 2019-03-16 07:15 | US ---
EXAMINATION TYPE: US pelvic complete DATE OF EXAM: 03/15/2019 COMPARISON: Pelvic ultrasound dated 01/27/2018 CLINICAL HISTORY: [id number] FAMILY HX OF OVARIAN CA. LMP 20 years ago; TECHNIQUE: Transabdominal (TA). Transabdominal sonographic images of the pelvis were acquired. Date of LMP: 20 years ago EXAM MEASUREMENTS: Uterus: 6.0 x 3.2 x 1.8 cm Endometrial Stripe: 0.3 cm Right Ovary: 2.2 x 2.1 x 1.8 cm Left Ovary: 2.1 x 2.6 x 1.1 cm 1. Uterus: Anteverted 2. Endometrium: wnl post menopause 3. Right Ovary: wnl 4. Left Ovary: wnl 5. Bilateral Adnexa: wnl 6. Posterior cul-de-sac: wnl IMPRESSION: Endometrial thickness is within normal limits. Ovaries are symmetric and atrophic. No ova zhen masses seen on this examination.
--- NOTE | 2019-03-21 16:02 | P.PN ---
Progress Note - Text Progress Note Date: 03/21/19 OUTPATIENT FOLLOW-UP NOTE TEST(S)/RESULTS: Pelvic ultrasound done on 03/15/2019 was within normal limits. Ovaries were both within normal limits. METHOD OF NOTIFICATION: A message with these results was left on the patient's voicemail. PATIENT COMMENTS: DIAGNOSIS: Family history of ovarian cancer. Pelvic ultrasound was within normal limits. DISCUSSION: PLAN: She was advised to return in one year for her annual well woman exam. We will continue to do yearly pelvic ultrasounds.
== END | disposition home or self-care (01) ==
LOC: RADUSWWP 14:14
PROVIDERS: ATTEND Obstetrics & Gynecology
DX: N83.312 Acquired atrophy of left ovary (principal); N83.311 Acquired atrophy of right ovary; Z80.41 Family history of malignant neoplasm of ovary
CPT/HCPCS: 76856

== ENCOUNTER → 2020-06-26 | Outpatient (CLI) | payer MEDICARE, BC ==
[2020-06-26 11:48] VITALS: BP 138/82; PULSE 67; RESP 18; TEMP 98
--- NOTE | 2020-06-26 12:48 | P.HPOB ---
History of Present Illness H&P Date: 06/26/20 Chief Complaint: The patient is here for her routine gynecologic exam and ma mmogram. This is a 74-year-old with an LMP of 2001. The patient is without gynecologic complaints. The patient is concerned about ovarian cancer because her mother had ovarian cancer in her 70s. She wants to make sure that we continue to do yearly pelvic ultrasounds. Review of Systems She has gained about 8 pounds over the past year and a half. She denies respi ratory, cardiac and G.I. problems. She denies maltreatment or problems with falling. : she continues to have some urinary leakage with coughing and sneezing. She is declining referral for her incontinence at this time. Past Medical History Past Medical History: GERD/Reflux, Hypertension Additional Past Medical History / Comment(s): hx.tubular adenoma(colonoscopy at least every 5yr). Osteopenia. 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 History of Any Multi-Drug Resistant Organisms: None Reported Past Surgical History: Breast Surgery, Cholecystectomy, Joint Replacement Additional Past Surgical History / Comment(s): BL knee replaced, breast b iopsies, salivary gland removed. Colonoscopy 2013(next after 5yr). Past Anesthesia/Blood Transfusion Reactions: Postoperative Nausea & Vomiting (PONV) Past Psychological History: No Psychological Hx Reported Smoking Status: Never smoker Past Alcohol Use History: Occasional (0-2 per month) Past Drug Use History: None Reported Additional History: The patient is and has been with her current boyfriend since 2009. She is not sexually active. 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 - Past Family History Mother Family Medical History: Cancer Additional Family Medical History / Comment(s): ovarian cancer. Grandfather had prostate cancer. Medications and Allergies Home Medications Medication Instructions Recorded Confirmed Type Potassium Chloride 30 meq PO DAILY 01/31/14 06/26/20 History ALPRAZolam [Xanax] 0.25 mg PO TID PRN 01/11/18 06/26/20 History Calcium Carbonate [Calcium] 1,200 mg PO DAILY 01/11/18 06/26/20 History Cholecalciferol (Vitamin D3) 4,000 unit PO DAILY 01/11/18 06/26/20 History [Vitamin D3] Naproxen 500 mg PO BID 01/11/18 06/26/20 History B Complex-Vit C-Vit E-Zinc [Z-Bec] 1 tab PO DAILY 04/04/18 06/26/20 History Fish Oil(Dose Unknown) 1 tab PO DAILY 04/04/18 06/26/20 History Atenolol/Chlorthalidone 1 each PO DAILY 02/07/19 06/26/20 History [Atenolol-Chlorthalidone 100-25] buPROPion XL [Wellbutrin Xl] 150 mg PO DAILY 06/26/20 06/26/20 History Allergies Allergy/AdvReac Type Severity Reaction Status Date / Time escitalopram oxalate Allergy Hallucinati Verified 06/26/20 11:03 [From Lexapro] ons Penicillins Allergy Rash/Hives Verified 06/26/20 11:03 Sulfa (Sulfonamide Allergy Unknown Verified 06/26/20 11:03 Antibiotics) Childhood Exam Vital Signs Temp Pulse Resp BP Pulse Ox 06/26/20 11:42 98.0 F 67 18 138/82 99 Intake and Output 06/25/20 06/26/20 06/26/20 22:59 06:59 14:59 Other: Weight 97.976 kg Height 5 feet 4 inches, weight 216 pounds, BMI 37.1. This is a well-developed well-nourished white female who is alert and oriented times 3 in no acute distress. HEENT: Within normal limits. NECK: Supple without mass or thyromegaly. CHEST AND LUNGS: Clear to auscultation. HEART: Regular rate and rhythm. BREASTS: Are without mass or discharge. AXILLARY EXAM: Negative for adenopathy. BACK: Negative for CVA tenderness. ABDOMEN: Soft, nontender, without palpable masses. PELVIC EXAM: Normal external genitalia with mild to moderate atrophy. Cervix and vagina appear normal with mild to moderate atrophy. There is no unusual discharge. There is no evidence of prolapse. The uterus is midposition, nong ravid size and nontender. There are no palpable adnexal masses or tenderness. RECTAL EXAM: Rectovaginal exam is negative for mass or tenderness and is negative for occult blood. EXTREMITIES: Nontender. IMPRESSION: 1. 74-year-old menopausal female with normal gynecologic exam. 2. Family history of ovarian cancer in her mother. 3. History of osteopenia. 4. Stress urinary incontinence. PLAN: 1. Pap smear was performed. We have documented negative Pap smears from 2016 and 2018. If this one is negative, we will consider discontinuing Pap smears. 2. Self breast awareness was discussed with the patient. 3. Screening mammogram will be done today. 4. Yearly pelvic ultrasound was recommended because of her mother's history of ovarian cancer. The order slip was given to the patient for this. 5. Osteoporosis prevention was discussed. I have stressed the importance of adequate calcium, vitamin D and regular exercise. Recommended amounts of calcium and vitamin D were also discussed. We will plan on repeating the bone density test in 2021. Her last one was done on 02/07/2019. 6. She did receive her flu shot last fall and has completed her Covid vaccination series. 7. We have again discussed her stress urinary incontinence. I have offered her a referral to a gynecologic urologist for evaluation and possible treatment. She is declining this. She was instructed to let me know if she would like to proceed with a referral for this. 8. She was advised to return in one year for her annual well woman exam.
--- NOTE | 2020-06-27 14:04 | MM ---
Reason for exam: screening (asymptomatic). Last mammogram was performed 1 year and 5 months ago. History: Patient is postmenopausal. Benign excisional biopsy of the left breast, 1968. Benign excisional biopsy of the right breast, 1968. Took hormonal contraceptives for 23 years. Physical Findings: A clinical breast exam by your physician is recommended on an annual basis and results should be correlated with mammographic findings. MG 3D Screening Mammo W/Cad Bilateral CC and MLO view(s) were taken. Prior study comparison: February 07, 2019, bilateral MG 3d screening mammo w/cad. January 11, 2018, bilateral MG 3d screening mammo w/cad. There are scattered fibroglandular densities. Benign appearing bilateral calcifications. There is chronic nodularity in the left breast. No significant changes when compared with prior studies. ASSESSMENT: Benign, BI-RAD 2 RECOMMENDATION: Routine screening mammogram of both breasts in 1 year.
== END | disposition home or self-care (01) ==
LOC: WWCWWP 10:58
PROVIDERS: ATTEND Obstetrics & Gynecology
DX: Z12.31 Encounter for screening mammogram for malignant neoplasm of breast (principal); Z01.419 Encounter for gynecological examination (general) (routine) without abnormal findings; I10 Essential (primary) hypertension; N39.3 Stress incontinence (female) (male); Z80.41 Family history of malignant neoplasm of ovary; Z87.39 Personal history of other diseases of the musculoskeletal system and connective tissue
CPT/HCPCS: 77063; 77067

== ENCOUNTER → 2020-07-02 | Outpatient (CLI) | payer MEDICARE, BC ==
--- NOTE | 2020-07-02 10:09 | US ---
EXAMINATION TYPE: US pelvic complete DATE OF EXAM: 07/02/2020 COMPARISON: [facility] CLINICAL HISTORY: Z80.41 FAMILY HX OF OVARIAN CA. Patient denies pelvic problems TECHNIQUE: Transabdominal (TA). Transabdominal sonographic images of the pelvis were acquired. Date of LMP: 5th decade EXAM MEASUREMENTS: Uterus: 6.0 x 3.1 x 2.2 cm Endometrial Stripe: 0.2 cm Right Ovary: 2.6 x 1.4 x 1.0 cm Left Ovary: 2.3 x 2.0 x 1.2 cm 1. Uterus: Anteverted, Nabothian Cyst seen in cervix and size = 0.4 x 0.6 x 0.4cm. 2. Endometrium: wnl 3. Right Ovary: wnl 4. Left Ovary: wnl 5. Bilateral Adnexa: wnl 6. Posterior cul-de-sac: wnl IMPRESSION: Cervical nabothian cysts.
== END | disposition home or self-care (01) ==
LOC: RADUSWWP 08:54
PROVIDERS: ATTEND Obstetrics & Gynecology
DX: N88.8 Other specified noninflammatory disorders of cervix uteri (principal); Z80.41 Family history of malignant neoplasm of ovary
CPT/HCPCS: 76856

== ENCOUNTER → 2021-07-15 | Outpatient (CLI) | payer MEDICARE, BC ==
[2021-07-15 15:21] VITALS: BP 139/69; PULSE 65; RESP 17; TEMP 98.3
--- NOTE | 2021-07-15 16:51 | P.HPOB ---
History of Present Illness H&P Date: 07/15/21 Chief Complaint: The patient is here for her routine gynecologic exam and ma mmogram. This is a 75-year-old with an LMP of 2001. The patient continues to have some urinary incontinence. Occasionally it is intermediate with coughing and sneezing and at other times she will leak if she does not get to the bathroom soon enough after feeling urinary urgency. She thinks it has gotten worse compared to last year. She has to wear protection at all times . She tries to avoid drinking fluid before bedtime. Review of Systems The patient has gained 6 pounds over the last year. She denies respiratory, cardiac, or G.I. problems. : Urinary leakage as in the HPI. Past Medical History Past Medical History: GERD/Reflux, Hypertension Additional Past Medical History / Comment(s): hx.tubular adenoma(GI). Osteopenia. 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 History of Any Multi-Drug Resistant Organisms: None Reported Past Surgical History: Breast Surgery, Cholecystectomy, Joint Replacement Additional Past Surgical History / Comment(s): BL knee replaced, breast biopsies, salivary gland removed. Colonoscopy 2013. Past Anesthesia/Blood Transfusion Reactions: Postoperative Nausea & Vomiting (PONV) Past Psychological History: No Psychological Hx Reported Smoking Status: Never smoker Past Alcohol Use History: Occasional (0-1 per week) Past Drug Use History: None Reported Additional History: She is and has been with her current boyfriend since 2009. They live separately. She is not sexually active. 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 - Past Family History Mother Family Medical History: Cancer Additional Family Medical History / Comment(s): ovarian cancer. Grandfather had prostate cancer. Medications and Allergies Home Medications Medication Instructions Recorded Confirmed Type Potassium Chloride 30 meq PO DAILY 01/31/14 07/15/21 History ALPRAZolam [Xanax] 0.25 mg PO TID PRN 01/11/18 07/15/21 History Calcium Carbonate [Calcium] 1,200 mg PO DAILY 01/11/18 07/15/21 History Cholecalciferol (Vitamin D3) 4,000 unit PO DAILY 01/11/18 07/15/21 History [Vitamin D3] B Complex-Vit C-Vit E-Zinc [Z-Bec] 1 tab PO DAILY 04/04/18 07/15/21 History Atenolol/Chlorthalidone 1 each PO DAILY 02/07/19 07/15/21 History [Atenolol-Chlorthalidone 100-25] buPROPion XL [Wellbutrin Xl] 150 mg PO DAILY 06/26/20 07/15/21 History Allergies Allergy/AdvReac Type Severity Reaction Status Date / Time escitalopram oxalate Allergy Hallucinati Verified 07/15/21 15:15 [From Lexapro] ons Penicillins Allergy Rash/Hives Verified 07/15/21 15:15 Sulfa (Sulfonamide Allergy Unknown Verified 07/15/21 15:15 Antibiotics) Childhood Exam Vital Signs Temp Pulse Resp BP Pulse Ox 07/15/21 15:18 98.3 F 65 17 139/69 96 Height 5 feet 3 inches, weight 222 pounds, BMI 39. This is a well-developed well-nourished white female who is alert and oriented times 3 in no acute distress. HEENT: Within normal limits. NECK: Supple without mass or thyromegaly. CHEST AND LUNGS: Clear to auscultation. HEART: Regular rate and rhythm. BREASTS: Are without mass or discharge. AXILLARY EXAM: Negative for adenopathy. BACK: Negative for CVA tenderness. ABDOMEN: Soft, nontender, without palpable masses. PELVIC EXAM: Normal external genitalia with mild to moderate atrophy. Cervix and vagina appear normal with mild atrophy. There is no unusual discharge. There is no evidence of prolapse. The uterus is midposition, nongravid size and nontender. There are no palpable adnexal masses or tenderness. RECTAL EXAM: rectovaginal exam is negative for mass or tenderness and is negative for occult blood. EXTREMITIES: Nontender. IMPRESSION: 1. 75-year-old menopausal female with normal gynecologic exam. 2. Mixed urinary incontinence with no significant physical findings on exam today. 3. History of osteopenia. 4. Family history of ovarian cancer in her mother. PLAN: 1. Pap smears have been discontinued. 2. Self breast awareness was discussed with the patient. We have also discussed symptoms associated with inflammatory breast cancer. 3. Screening mammogram was done today. 4. Osteoporosis prevention was discussed. I have stressed the importance of adequate calcium, vitamin D and regular exercise. Recommended amounts of calcium and vitamin D were also discussed. She is due for a bone density test and the order slip was given to the patient for this. Her last bone density test was done on 02/07/2019. 5. Yearly pelvic ultrasound will be continued because of her mother's history of ovarian cancer. The order slip was given to the patient for this. 6. We have had a long discussion regarding urinary incontinence. At times she seems to have symptoms consistent with stress urinary incontinence and at other times it is more consistent with urge incontinence. We have discussed options including trial of medication for overactive bladder. We have also discussed the option of a referral to a gynecologic urologist. She will consider these options and let me know if she is interested in doing either of these 7. She has completed her Covid vaccination series and has received 2 boosters as well. 8. She was advised to return in one year for her annual well woman exam.
--- NOTE | 2021-07-16 11:54 | MM ---
Reason for Exam: Screening (asymptomatic). Last mammogram was performed 1 year(s) and 1 month(s) ago. Patient History: Menarche at age 14. First Full-Term at age 20. Postmenopausal. Hormonal Contraceptives for 23 years from age 21 until age 44. 1968, Benign Excisional Biopsy on the right side. 1968, Benign Excisional Biopsy on the left side. Risk Values: Ethel 5 year model risk: 1.9%. NCI Lifetime model risk: 4.4%. Film Views: Bilateral CC views were taken. Bilateral MLO views were taken. Prior Study Comparison: 01/11/2018 Bilateral Screening Mammogram, [facility]. 02/07/2019 Bilateral Screening Mammogram, [facility]. 06/26/2020 Bilateral Screening Mammogram, [facility]. Tissue Density: There are scattered fibroglandular densities. Findings: Analyzed By CAD. Occasional scattered benign appearing punctate calcification bilaterally more numerous in the left breast is redemonstrated. Skin lesion in the right breast outer aspect again seen. Stable tiny chronic nodularity in the right breast. Persistent but stable larger masses in the left breast are also noted. No suspicious new mass or worrisome cluster of microcalcification in either breast. Overall Assessment: Benign, BI-RAD 2 Management: Screening Mammogram of both breasts in 1 year. A clinical breast exam by your physician is recommended on an annual basis and results should be correlated with mammographic findings.
== END | disposition home or self-care (01) ==
LOC: RADMAMWWP 13:35
PROVIDERS: ATTEND Obstetrics & Gynecology
DX: Z12.31 Encounter for screening mammogram for malignant neoplasm of breast (principal)
CPT/HCPCS: 77063; 77067

== ENCOUNTER → 2021-09-29 | Outpatient (CLI) | payer MEDICARE, BC ==
--- NOTE | 2021-09-29 18:28 | BD ---
EXAMINATION TYPE: Axial Bone Density DATE OF EXAM: 09/29/2021 COMPARISON: 12/14/2016 CLINICAL HISTORY: 75 years year old Female. ICD-10 CODE: Z78.0 Post Menopausal Height: 62.5 IN Weight: 221 LBS RISK FACTORS HISTORY OF: History of Wrist Fracture: YES RT WRIST AGE 9 Family History of Osteoporosis: YES GRANDMOTHER Active: YES Postmenopausal woman: AGE 51 MEDICATIONS: Additional Medications: CALCIUM, VIT D, ATENOLOL, BLOOD PRESSURE MEDS, POTASSIUM EXAM MEASUREMENTS: Bone mineral densitometry was performed using the [employer] System. Bone mineral density as measured about the Lumbar spine is: ----- L1-L4(G/cm2): 1.074 T Score Values are as follows: ----- L1: -1.4 ----- L2: -1.8 ----- L3: -1.0 ----- L4: 0.4 ----- L1-L4: -0.9 Bone mineral density has: Decreased -1.8% since study of: 12/14/2016 Bone mineral density about the R hip (g/cm2): 0.780 Bone mineral density about the L hip (g/cm2): 0.800 T Score values are as follows: -----R Neck: -1.9 -----L Neck: -1.7 -----R Total: -1.2 -----L Total: -0.8 Bone mineral density has: Decreased -4.7% since study of: 12/14/2016 FRAX%s: The graph provided illustrates a 11.0 chance for a major osteoporotic fx and a 2.4 chance for the hips probability for fx in 10 years time. IMPRESSION: Osteopenia (T Score between -2.5 and -1). There is slightly increased risk of fracture and the patient may be considered for treatment. Re-Screen 2-5 years. NOTE: T-SCORE=SD OF THE YOUNG ADULT MEAN.
== END | disposition home or self-care (01) ==
LOC: RADBDWWP 15:01
PROVIDERS: ATTEND Obstetrics & Gynecology
DX: Z78.0 Asymptomatic menopausal state (principal)
CPT/HCPCS: 77080

== ENCOUNTER → 2022-12-29 | Outpatient (CLI) | payer MEDICARE, BC ==
[2022-12-29 10:43] VITALS: BP 124/79; PULSE 70; RESP 17; TEMP 98.2
--- NOTE | 2022-12-29 11:37 | P.HPOB ---
History of Present Illness H&P Date: 12/29/22 Chief Complaint: The patient is here for her routine gynecologic exam and ma mmogram. This is a 77-year-old with an LMP of 2001. The patient has been experiencing some vulvar itching intermittently. She believes it is because of the moisture related to some urinary leakage and the pads she wears for the urinary leakage. She again is declining referral to a gynecologic urologist and states it is manageable with using pads. She is otherwise without gynecologic complaints. She denies vaginal discharge or vaginal odor. Review of Systems The patient has lost 10 pounds over the last year. She denies respiratory, cardiac, or G.I. problems. Past Medical History Past Medical History: GERD/Reflux, Hypertension Additional Past Medical History / Comment(s): hx.tubular adenoma(GI). Osteopenia. 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 History of Any Multi-Drug Resistant Organisms: None Reported Past Surgical History: Breast Surgery, Cholecystectomy, Joint Replacement Additional Past Surgical History / Comment(s): BL knee replaced, breast biopsies, salivary gland removed. Colonoscopy 2020(next after 4yr). Past Anesthesia/Blood Transfusion Reactions: Postoperative Nausea & Vomiting (PONV) Past Psychological History: Depression Smoking Status: Never smoker Past Alcohol Use History: Occasional (2 drinks per month.) Past Drug Use History: None Reported Additional History: She is and has been with her current boyfriend since 2009. They are not sexually active and they live separately. 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 - Past Family History Mother Family Medical History: Cancer Additional Family Medical History / Comment(s): ovarian cancer. Grandfather had prostate cancer. Medications and Allergies Home Medications Medication Instructions Recorded Confirmed Type Potassium Chloride 30 meq PO DAILY 01/31/14 12/29/22 History ALPRAZolam [Xanax] 0.25 mg PO TID PRN 01/11/18 12/29/22 History Calcium Carbonate [Calcium] 1,200 mg PO DAILY 01/11/18 12/29/22 History Cholecalciferol (Vitamin D3) 4,000 unit PO DAILY 01/11/18 12/29/22 History [Vitamin D3] B Complex-Vit C-Vit E-Zinc [Z-Bec] 1 tab PO DAILY 04/04/18 12/29/22 History Atenolol/Chlorthalidone 1 each PO DAILY 02/07/19 12/29/22 History [Atenolol-Chlorthalidone 100-25] buPROPion XL [Wellbutrin Xl] 150 mg PO DAILY 06/26/20 12/29/22 History Allergies Allergy/AdvReac Type Severity Reaction Status Date / Time escitalopram oxalate Allergy Hallucinati Verified 12/29/22 10:25 [From Lexapro] ons Penicillins Allergy Rash/Hives Verified 12/29/22 10:25 Sulfa (Sulfonamide Allergy Unknown Verified 12/29/22 10:25 Antibiotics) Childhood Exam Vital Signs Temp Pulse Resp BP Pulse Ox 12/29/22 10:26 98.2 F 70 17 124/79 96 Intake and Output 12/28/22 12/29/22 12/29/22 22:59 06:59 14:59 Other: Weight 96.162 kg Height 5 feet 3 inches, weight 212 pounds, BMI 37.6. This is a well-developed well-nourished white female who is alert and oriented times 3 in no acute distress. HEENT: Within normal limits. NECK: Supple without mass or thyromegaly. CHEST AND LUNGS: Clear to auscultation. HEART: Regular rate and rhythm. BREASTS: Are without mass or discharge. AXILLARY EXAM: Negative for adenopathy. BACK: Negative for CVA tenderness. ABDOMEN: Soft, nontender, without palpable masses. PELVIC EXAM: External genitalia reveals mild atrophy with generalized mild erythema. There is no ulceration or excoriation. There is slight moisture noted in the vulvar area. Cervix and vagina appear normal with mild to moderate atrophy. There is no unusual discharge. There is no evidence of prolapse. The uterus is midposition, nongravid size and nontender. There are no palpable adnexal masses or tenderness. RECTAL EXAM: Rectovaginal exam is negative for mass or tenderness and is negative for occult blood. EXTREMITIES: Nontender. IMPRESSION: 1. 77-year-old menopausal female with mild vulvar erythema probably secondary to chronic moisture and had usage. No evidence of Vanita vaginitis on exam. 2. Probable mixed urinary incontinence with no significant physical findings on exam today. 3. History of osteopenia. 4. Family history of ovarian cancer in her mother. PLAN: 1. Pap smears have been discontinued. 2. Self breast awareness was discussed with the patient. We have also discussed symptoms associated with inflammatory breast cancer. 3. Screening mammogram was done today. 4. Pelvic ultrasound was recommended because of her family history of ovarian cancer. She did not have this done last year, but she states that she will have it done this year. The order slip was given to the patient for this. 5. Osteoporosis prevention was discussed. I have stressed the importance of adequate calcium, vitamin D and regular exercise. Recommended amounts of calcium and vitamin D were also discussed. Her last bone density test was done on 09/29/2021. We will plan on repeating this next year. 6. PHQ-9 questionnaire was given and she scored 8 which would be consistent with mild depression. She states she has discussed depression with her PCP who did prescribe Wellbutrin which did not seem to help. She denies suicidal thoughts or thoughts of hurting others. She states she is not interested in doing any additional treatment and states she will speak with her PCP if her symptoms are getting worse. 7. She again is declining referral for her urinary incontinence symptoms and states it is manageable with wearing pads. 8. Kenalog 0.1% cream twice a day as needed for vulvar itching. She will also use some type of protective barrier such as petroleum jelly or a and D ointment once a day to protect against the moisture or usage of pads. The electronic prescription for the Kenalog cream will be sent to [facility] pharmacy on [address] [facility]. 9. She was advised to return in one year for her annual well woman exam and as needed.
--- NOTE | 2022-12-30 09:10 | MM ---
Reason for Exam: Screening (asymptomatic). Last mammogram was performed 1 year(s) and 5 month(s) ago. Patient History: Menarche at age 14. First Full-Term at age 20. Postmenopausal. Hormonal Contraceptives for 23 years from age 21 until age 44. 1969, Benign Excisional Biopsy on the right side. 1968, Benign Excisional Biopsy on the left side. Risk Values: Ethel 5 year model risk: 1.9%. NCI Lifetime model risk: 3.9%. Prior Study Comparison: 02/07/2019 Bilateral Screening Mammogram, [facility]. 06/26/2020 Bilateral Screening Mammogram, [facility]. 07/15/2021 Bilateral MG 3D screening mammo w/cad, [facility]. Tissue Density: The breast tissue is heterogeneously dense. This may lower the sensitivity of mammography. Findings: Analyzed By CAD. There is no suspicious group of microcalcifications or new suspicious mass. Benign-appearing calcifications bilaterally. Overall Assessment: Benign, BI-RAD 2 Management: Screening Mammogram of both breasts in [address] [facility] will attempt to contact patient to return for supplemental views and ultrasound if indicated. Patient should continue monthly self-breast exams. A clinical breast exam by your physician is recommended on an annual basis. This exam should not preclude additional follow-up of suspicious palpable abnormalities. Note on Ethel scores and lifetime risk: 1. A Ethel score greater than 3% is considered moderate risk. If this is the case, consider specialist referral to assess eligibility for a risk reducing agent. 2. If overall lifetime risk for the development of breast cancer is 20% or higher, the patient may qualify for future screening with alternating mammogram and breast MRI. Electronically signed and approved by: Estevan Vasquez DO
== END ==
LOC: WWCWWP 10:04
PROVIDERS: ATTEND Obstetrics & Gynecology
DX: Z12.31 Encounter for screening mammogram for malignant neoplasm of breast (principal); K21.9 Gastro-esophageal reflux disease without esophagitis; I10 Essential (primary) hypertension; M85.80 Other specified disorders of bone density and structure, unspecified site; N90.89 Other specified noninflammatory disorders of vulva and perineum; Z80.41 Family history of malignant neoplasm of ovary; Z88.0 Allergy status to penicillin; Z88.2 Allergy status to sulfonamides; Z78.0 Asymptomatic menopausal state; Z88.8 Allergy status to other drugs, medicaments and biological substances; Z79.899 Other long term (current) drug therapy
CPT/HCPCS: 77063; 77067

== ENCOUNTER → 2023-01-18 | Outpatient (CLI) | payer MEDICARE, BC ==
--- NOTE | 2023-01-18 13:36 | US ---
EXAMINATION TYPE: US pelvic complete DATE OF EXAM: 01/18/2023 COMPARISON: NONE CLINICAL INDICATION: Female, 77 years old with history of Z80.41 OVARIAN CA; mother had ovarian ca TECHNIQUE: Transabdominal (TA EXAM MEASUREMENTS: Uterus: 6.8 x 2.5 x 4.7 cm Endometrial Stripe: .7 cm Right Ovary: 1.8 x .9 x 1.2 cm Left Ovary: 1.7 x 1.2 x 1.5 cm 1. Uterus: Anteverted wnl 2. Endometrium: wnl 3. Right Ovary: wnl 4. Left Ovary: wnl 5. Bilateral Adnexa: wnl 6. Posterior cul-de-sac: wnl IMPRESSION: No discrete abnormality seen.
--- NOTE | 2023-01-19 12:00 | P.PN ---
Progress Note - Text Progress Note Date: 01/19/23 OUTPATIENT FOLLOW-UP NOTE TEST(S)/RESULTS: Pelvic ultrasound done on 01/18/2023 was unremarkable. METHOD OF NOTIFICATION: A message with this result was left on the patient's voice mail on 01/19/2023. PATIENT COMMENTS: DIAGNOSIS: Family history of ovarian cancer in her mother. Normal pelvic u ltrasound. DISCUSSION: She was asked to call if she has any questions regarding these results. PLAN: She was advised to return in one year for her annual well woman exam. We will plan on continuing yearly pelvic ultrasounds.
== END | disposition home or self-care (01) ==
LOC: RADUSWWP 10:57
PROVIDERS: ATTEND Obstetrics & Gynecology
DX: Z80.41 Family history of malignant neoplasm of ovary (principal)
CPT/HCPCS: 76856

== ENCOUNTER → 2024-01-11 | Outpatient (CLI) | payer MEDICARE, BC ==
[2024-01-11 14:06] VITALS: BP 129/75; PULSE 62; RESP 16; TEMP 98.1
--- NOTE | 2024-01-11 14:50 | P.HPOB ---
History of Present Illness H&P Date: 01/11/24 Chief Complaint: The patient is here for her routine gynecologic exam and ma mmogram. This is a 78-year-old G1, P1 with an LMP of 2001. The patient has infrequently using Kenalog cream for vulvar irritation. She has only needed it infrequently. She is otherwise without gynecologic complaints. She states she has been actively trying to lose weight with improved diet. She states with the weight loss, her urinary incontinence has improved quite a bit. Review of Systems The patient has lost 30 pounds over the last year. She has done this with dietary changes. She is going to try to lose about 15 more pounds. She denies respiratory, cardiac, or G.I. problems. Past Medical History Past Medical History: GERD/Reflux, Hypertension Additional Past Medical History / Comment(s): hx.tubular adenoma(GI). Osteopenia. Macular degeneration. 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 History of Any Multi-Drug Resistant Organisms: None Reported Past Surgical History: Breast Surgery, Cholecystectomy, Joint Replacement Additional Past Surgical History / Comment(s): BL knee replaced, breast biopsie s, salivary gland removed. Colonoscopy 2020(next after 4yr). Past Anesthesia/Blood Transfusion Reactions: Postoperative Nausea & Vomiting (PONV) Past Psychological History: Depression Smoking Status: Never smoker Past Alcohol Use History: Occasional (About 2 drinks per month.) Past Drug Use History: None Reported Additional History: She is and has been with her current boyfriend since 2009. They are not sexually active and they have their own homes. - Past Family History Mother Family Medical History: Cancer Additional Family Medical History / Comment(s): ovarian cancer. Grandfather had prostate cancer. Medications and Allergies Home Medications Medication Instructions Recorded Confirmed Type Potassium Chloride 30 meq PO DAILY 01/31/14 01/11/24 History ALPRAZolam [Xanax] 0.25 mg PO TID PRN 01/11/18 01/11/24 History Calcium Carbonate [Calcium] 1,200 mg PO DAILY 01/11/18 01/11/24 History Cholecalciferol (Vitamin D3) 4,000 unit PO DAILY 01/11/18 01/11/24 History [Vitamin D3] B Complex-Vit C-Vit E-Zinc [Z-Bec] 1 tab PO DAILY 04/04/18 01/11/24 History Atenolol/Chlorthalidone 1 each PO DAILY 02/07/19 01/11/24 History [Atenolol-Chlorthalidone 100-25] Triamcinolone 0.1% Cream [Kenalog 1 applicatio TOPICAL BID PRN #30 gm 12/29/22 01/11/24 Rx 0.1% Cream] Allergies Allergy/AdvReac Type Severity Reaction Status Date / Time escitalopram oxalate Allergy Hallucinati Verified 01/11/24 13:52 [From Lexapro] ons Penicillins Allergy Rash/Hives Verified 01/11/24 13:52 Sulfa (Sulfonamide Allergy Unknown Verified 01/11/24 13:52 Antibiotics) Childhood Exam Vital Signs Temp Pulse Resp BP Pulse Ox 01/11/24 13:55 98.1 F 62 16 129/75 98 Intake and Output 01/10/24 01/11/24 01/11/24 22:59 06:59 14:59 Other: Weight 82.554 kg Height 5 feet 3 inches, weight 182 pounds, BMI 32.2. This is a well-developed well-nourished white female who is alert and oriented times 3 in no acute distress. HEENT: Within normal limits. NECK: Supple without mass or thyromegaly. CHEST AND LUNGS: Clear to auscultation. HEART: Regular rate and rhythm. BREASTS: Are without mass or discharge. AXILLARY EXAM: Negative for adenopathy. BACK: Negative for CVA tenderness. ABDOMEN: Soft, nontender, without palpable masses. PELVIC EXAM: Normal external genitalia with mild to moderate atrophy. Cervix and vagina appear normal with mild to moderate atrophy. There is no unusual discharge. There is no evidence of prolapse. The uterus is midposition, nongravid size and nontender. There are no palpable adnexal masses or tenderness. RECTAL EXAM: Rectovaginal exam is negative for mass or tenderness and is negative for occult blood. EXTREMITIES: Nontender. IMPRESSION: 1. 78-year-old menopausal female with normal gynecologic exam. 2. History of osteopenia. 3. Family history of ovarian cancer in her mother. PLAN: 1. Pap smears have been discontinued. 2. Self breast awareness was discussed with the patient. We have also discussed symptoms associated with inflammatory breast cancer. 3. Screening mammogram will be done today. 4. Osteoporosis prevention was discussed. I have stressed the importance of adequate calcium, vitamin D and regular exercise. Recommended amounts of calcium and vitamin D were also discussed. Bone density test will be done today. 5. Yearly pelvic ultrasound will be done because of her family history of ov citlali cancer in her mother. The order slip was given to the patient for this. 6. She was advised to return in one year for her annual well woman exam.
== END ==
LOC: WWCWWP 13:31
PROVIDERS: ATTEND Obstetrics & Gynecology
DX: Z12.31 Encounter for screening mammogram for malignant neoplasm of breast (principal); M85.80 Other specified disorders of bone density and structure, unspecified site; Z78.0 Asymptomatic menopausal state; Z80.41 Family history of malignant neoplasm of ovary; Z88.2 Allergy status to sulfonamides; Z88.0 Allergy status to penicillin; Z88.8 Allergy status to other drugs, medicaments and biological substances
CPT/HCPCS: 77063; 77067; 77080

== ENCOUNTER → 2024-02-10 | Outpatient (CLI) | payer MEDICARE, BC ==
[2024-02-10 11:15] LABS: African American GFR (CKD) >90 (>60 ml/min/1.73 sqM); Calcium 9.3 mg/dL (8.4-10.2); Non-African American GFR(CKD) >90 (>60 ml/min/1.73 sqM)
--- NOTE | 2024-02-10 12:21 | US ---
EXAMINATION TYPE: US pelvis complete transvag DATE OF EXAM: 02/10/2024 COMPARISON: NONE CLINICAL INDICATION: Female, 78 years old with history of Z80.41 OVARIAN CA; Family hx of ovarian ca. TECHNIQUE: Transvaginal (TV) and Transabdominal (TA) . Grayscale imaging performed. FINDINGS: EXAM MEASUREMENTS: Uterus: 5.8 x 2.6 x 4.0 cm Endometrial Stripe: .3 cm 1. Uterus: Anteverted Anechoic area seen in cervix measuring 1.8 x 0.6 cm cyst of fluid within the canal versus nabothian cyst. 2. Endometrium: wnl 3. Right Ovary: Obscured by overlying bowel gas 4. Left Ovary: Obscured by overlying bowel gas 5. Bilateral Adnexa: wnl 6. Posterior cul-de-sac: wnl IMPRESSION: 1. No evidence for acute process. 2. Fluid within the cervical canal suggested as nabothian cysts. [facility], , 02/10/2024 12:19 PM
== END | disposition home or self-care (01) ==
LOC: RADUSWWP 10:40
PROVIDERS: ATTEND Obstetrics & Gynecology
DX: M85.80 Other specified disorders of bone density and structure, unspecified site (principal); Z80.41 Family history of malignant neoplasm of ovary; N88.8 Other specified noninflammatory disorders of cervix uteri
CPT/HCPCS: 76830; 76856; 82310; 82565